=== PATIENT | female | born 1945 | race Caucasian/White ===

== ENCOUNTER → 2016-08-26 | Outpatient (CLI) | payer MEDICARE ==
[~2016-08-26] MED LIST: ALENDRONATE SOD70 MG PO; ALLEGRA60 M1 PO; BONIVA150 MG PO; CALCIUM600 MG PO; CIPRO 500MG TA500 MG PO; OCUVITE ADULT 51 SGL PO; PREDNISONE 20MG20 MG PO; PREMARIN V0.625 MG/G VG; PROBIOTIC1 EAC3 PO; VALIUM 2MG TABLE2 MG PO
--- NOTE | 2016-08-26 14:51 | RADIOLOGY REPORT PS360 ---
BONE DENSITOMETRY(HIP:LT SPINE HISTORY: OSTEOPAROSIS ORDERING PHYSICIAN: Ciro Mcdermott MD PATIENT AGE: 71 years COMPARISON: None FINDINGS: The BMD measured at the left femoral neck is 0.691 g/cm squared with a T score of -2.5. This is considered osteoporotic according to the World Health Organization criteria. Fracture risk is high. Treatment should be initiated. The mean density of the hips has decreased by 1.7% compared to 10/12/2014. IMPRESSION: Osteoporosis. Follow-up exam recommended August 2017
== END ==
LOC: RAD 10:00
DX: M81.0 Age-related osteoporosis without current pathological fracture (principal); M85.80 Other specified disorders of bone density and structure, unspecified site

== ENCOUNTER → 2017-04-15 | Outpatient (CLI) | payer MEDICARE ==
[~2017-04-15] MED LIST changes: +VITAMIN E 400400 IU PO
== END ==
LOC: LAB 11:45
DX: N39.0 Urinary tract infection, site not specified (principal)